=== PATIENT | female | born 1970 | race Caucasian/White ===

== ENCOUNTER 2018-04-21 23:18 | Emergency (ER) | payer OTHER ==
[~2018-04-21] VITALS: Ht 162.6 cm; Wt 61.2 kg
[2018-04-21] MEDS ORDERED: ALEGRA (23:48)
[2018-04-21] MEDS ORDERED: PEPCID20 MG (23:49)
[2018-04-22] MEDS ORDERED: LEVSIN/SL0.125 MG SL (06:12)
[2018-04-22] MEDS ORDERED: ZOFRAN ODT4 MG PO (06:12)
[2018-04-22] MEDS ORDERED: CIPRO500 MG PO (06:12)
[2018-04-22] MEDS ORDERED: PEPCID40 MG PO (06:12)
== END 2018-04-22 06:16 | disposition home or self-care (01) ==
LOC: ER 23:18 → EMR PED 23:25 → ER 23:25 → EMR PED 04-22 06:16
DX: K52.89 Other specified noninfective gastroenteritis and colitis (principal); T78.1XXA Other adverse food reactions, not elsewhere classified, initial encounter; X58.XXXA Exposure to other specified factors, initial encounter